=== PATIENT | male | born 1940 | race Caucasian/White ===

== ENCOUNTER 2016-11-19 08:17 | Day surgery (SDC) | payer OTHER ==
[~2016-11-19] VITALS: Ht 180.3 cm; Wt 113.2 kg
[~2016-11-19 08:17] MED LIST: ADALAT CC 60 MG60 MG PO; ASPIR 8181 M1 PO; FLOMAX0.4 MG PO; HYDROCHLOROTH12.5 M3 PO; LIPITOR40 MG PO; LISINOPRIL40 MG; LOPID600 MG PO; METOPROLOL SUC100 MG PO; METOPROLOL SUC200 MG PO; OMEPRAZOLE20 MG PO; ZESTRIL40 MG PO
[2016-11-19 15:15] VITALS: BP 178/77
[2016-11-19 19:28] VITALS: BP 136/71
[2016-11-20 00:30] VITALS: BP 119/59
[2016-11-20 06:04] VITALS: BP 126/67
[2016-11-20 07:49] LABS: EOSINOPHIL COUNT 0.1 K/uL (0-0.3); HEMATOCRIT 37.6 % (38.0-50.0); IMMATURE GRANULOCYTE (%) 0.1 % (0.0-0.7); INSTRUMENT ABS NEUTROPHIL CT 5.1 K/uL; LYMPHOCYTE COUNT 1.2 K/uL (1.0-2.8); MCH 31.3 PG (29.0-34.0); MCHC 33.8 G/DL (30.0-36.0); MCV 92.6 FL (86-99); MONOCYTE (%) 7.8 % (3-12); MONOCYTE COUNT 0.6 K/uL (0-0.8); NEUTROPHIL (%) 73.1 % (45-76); NEUTROPHIL COUNT 5.1 K/uL (1.8-6.4); PLATELET COUNT 169 K/uL (156-360); RBC DIS.WIDTH-CV 12.1 % (11.8-14.6); RBC DIS.WIDTH-SD 41.3 % (39-53); RED BLOOD COUNT 4.06 M/uL (4.00-5.50)
[2016-11-20 08:12] LABS: ANION GAP 12 MEQ/L (2-14); CHLORIDE 101 MEQ/L (99-109); GFR ESTIMATE (CALCULATED) > 59 mL/min/; GLUCOSE 104 mg/dL (70-99); POTASSIUM 3.2 MEQ/L (3.7-5.4); SAMPLE HEMOLYSIS CHECK 0; SAMPLE ICTERIC CHECK 0; SAMPLE LIPEMIA CHECK 0; SODIUM 140 MEQ/L (136-147); UREA NITROGEN (BUN) 17 mg/dL (9-23)
[2016-11-20 09:14] VITALS: BP 153/68
[2016-11-20] MEDS ORDERED: NITROSTAT0.4 MG SL (10:37)
[2016-11-20] MEDS ORDERED: PANTOPRAZOLE SO40 MG PO (10:39)
[2016-11-20] MEDS ORDERED: ASPIR-LOW81 MG PO (10:39)
[2016-11-20] MEDS ORDERED: BRILINTA90 MG PO (10:52)
[2016-11-20 12:27] VITALS: BP 141/65
[2016-11-20 15:31] VITALS: BP 157/75
== END 2016-11-20 20:20 | disposition home or self-care (01) ==
LOC: CATH 08:17 → 2SOUTH 12:30 → 4EAST 12:30
PROVIDERS: Internal Medicine Cardiovascular Disease
DX: I25.119 Atherosclerotic heart disease of native coronary artery with unspecified angina pectoris (principal); I10 Essential (primary) hypertension; E78.5 Hyperlipidemia, unspecified; I45.10 Unspecified right bundle-branch block; E66.9 Obesity, unspecified; Z68.36 Body mass index [BMI] 36.0-36.9, adult; Z79.82 Long term (current) use of aspirin; Z79.899 Other long term (current) drug therapy
CPT/HCPCS: 93458; C9600; 80048; 84132 91; 85025; 93005; C1725; C1760; C1769; C1874; C1887; C1894; G0378; J0583; J0690; J1644; J2250; J3010; J3480; J7030; J7050

== ENCOUNTER 2016-11-25 09:31 | Observation (INO) | payer OTHER ==
[~2016-11-25] VITALS: Ht 180.3 cm; Wt 113.6 kg
[~2016-11-25 09:31] MED LIST changes: +ASPIR-LOW81 MG PO; +BRILINTA90 MG PO; +NITROSTAT0.4 MG SL; +PANTOPRAZOLE SO40 MG PO
[2016-11-25 09:54] LABS: POINT-OF-CARE METER ID UU13113702
[2016-11-25 11:02] LABS: MCH 31.6 PG (29.0-34.0); MCHC 34.2 G/DL (30.0-36.0); MCV 92.2 FL (86-99); MEAN PLAT.VOLUME 12.1 uM^3 (9.0-12.4); PLATELET COUNT 171 K/uL (156-360); RBC DIS.WIDTH-CV 11.9 % (11.8-14.6); RBC DIS.WIDTH-SD 40.9 % (39-53); RED BLOOD COUNT 4.12 M/uL (4.00-5.50); WHITE BLOOD COUNT 8.3 K/uL (4.1-10.2)
[2016-11-25 11:12] LABS: CHLORIDE 107 mEq/L (99-109); POTASSIUM 3.6 mEq/L (3.7-5.4); SODIUM 141 mEq/L (136-147)
[2016-11-25 11:14] LABS: GLUCOSE 188 mg/dL (70-99)
[2016-11-25 11:15] LABS: ANION GAP 13 MEQ/L (2-14)
[2016-11-25 11:18] LABS: GFR ESTIMATE (CALCULATED) > 59 mL/min/; UREA NITROGEN (BUN) 17 mg/dL (9-23)
[2016-11-25 11:25] LABS: TROP-I INTERPRETATION NEGATIVE; TROPONIN-I < 0.01 ng/mL (0.0-0.30)
[2016-11-25] MEDS ORDERED: LO-DOSE ASPIRIN81 M2 PO (11:52)
[2016-11-25] MEDS ORDERED: METOPROLOL TART50 MG PO (11:53)
[2016-11-25] MEDS ORDERED: NIFEDIPINE ER60 MG PO (11:56)
[2016-11-25] MEDS ORDERED: PANTOPRAZOLE SO40 MG PO (11:56)
[2016-11-25 18:05] LABS: ADD MIUA? NO; BILIRUBIN NEGATIVE; BLOOD NEGATIVE; COLOR YELLOW ((YELLOW)); GLUCOSE (STRIP) NEGATIVE; KETONES 5; LEUKOCYTES NEGATIVE; NITRITE NEGATIVE; PROTEIN (STRIP) 30; SPECIFIC GRAVITY 1.018 (1.000-1.030); UCUL ADDED? NO; UROBILINOGEN 0.2 MG/DL (0.2-1.0)
[2016-11-25 18:45] LABS: TROP-I INTERPRETATION NEGATIVE; TROPONIN-I < 0.01 ng/mL (0.0-0.30)
[2016-11-25 20:50] VITALS: BP 160/82
[2016-11-25 21:09] VITALS: BP 197/86
[2016-11-25 23:52] VITALS: BP 152/71
[2016-11-26] VITALS (9 sets, daily range): BP systolic 117–159; BP diastolic 64–80
[2016-11-26 07:34] LABS: HDL CHOLESTEROL 24 MG/DL (Desirable>=40); LDL CHOLESTEROL 69 mg/dL (Desirable<100); NON-HDL CHOLESTEROL 93 mg/dL (Desirable<160); TOTAL CHOLESTEROL 117 mg/dL (Desirable<200); TRIGLYCERIDES 119 MG/DL (Normal: <150)
[2016-11-26 07:39] LABS: TROP-I INTERPRETATION NEGATIVE; TROPONIN-I 0.01 ng/mL (0.0-0.30)
[2016-11-26 09:14] LABS: Estimated Average Glucose 131 mg/dL (70-123); HEMOGLOBIN A1c (GLYCOHEMOGLOB) 6.2 % HGB (Below 5.7)
[2016-11-26 10:00] LABS: TROP-I INTERPRETATION NEGATIVE; TROPONIN-I 0.01 ng/mL (0.0-0.30)
[2016-11-26] MEDS ORDERED: METOPROLOL TART50 MG PO (16:58)
[2016-11-27 03:25] VITALS: BP 136/74
[2016-11-27 07:26] VITALS: BP 152/72
[2016-11-27 11:05] VITALS: BP 135/54
== END 2016-11-27 13:51 | disposition home or self-care (01) ==
LOC: EME 09:31 → 5SOUTH 12:45 → EDOF 12:45 → 5SOUTH 12:45
PROVIDERS: Emergency Medicine; Hospitalist
DX: R42 Dizziness and giddiness (principal); I10 Essential (primary) hypertension; E78.5 Hyperlipidemia, unspecified; I25.10 Atherosclerotic heart disease of native coronary artery without angina pectoris; Z95.5 Presence of coronary angioplasty implant and graft; N40.0 Benign prostatic hyperplasia without lower urinary tract symptoms; K21.9 Gastro-esophageal reflux disease without esophagitis; E66.9 Obesity, unspecified; Z68.34 Body mass index [BMI] 34.0-34.9, adult; R73.03 Prediabetes
CPT/HCPCS: 70450; 70551; 71020; 80048; 80061; 81003; 82948; 83036; 84484; 85025; 85027; 93005; 94799; 99281; 99284; G0378; J1650

== ENCOUNTER 2017-02-07 08:05 | Observation (INO) | payer OTHER ==
[~2017-02-07] VITALS: Ht 180.3 cm; Wt 110.0 kg
[~2017-02-07 08:05] MED LIST changes: +LO-DOSE ASPIRIN81 M2 PO; +METOPROLOL TART50 MG PO; +NIFEDIPINE ER60 MG PO
[2017-02-07 09:34] LABS: HEMATOCRIT 34.6 % (38.0-50.0); MCH 31.4 PG (29.0-34.0); MCHC 33.8 G/DL (30.0-36.0); MCV 92.8 FL (86-99); MEAN PLAT.VOLUME 11.6 uM^3 (9.0-12.4); PLATELET COUNT 177 K/uL (156-360); RBC DIS.WIDTH-CV 12.7 % (11.8-14.6); RBC DIS.WIDTH-SD 43.2 % (39-53); RED BLOOD COUNT 3.73 M/uL (4.00-5.50); WHITE BLOOD COUNT 9.9 K/uL (4.1-10.2)
[2017-02-07 09:45] LABS: CHLORIDE 107 mEq/L (99-109); POTASSIUM 3.5 mEq/L (3.7-5.4); SODIUM 141 mEq/L (136-147)
[2017-02-07 09:47] LABS: GLUCOSE 165 mg/dL (70-99)
[2017-02-07 09:48] LABS: ANION GAP 10 MEQ/L (2-14)
[2017-02-07 09:49] LABS: TOTAL BILIRUBIN 0.5 mg/dL (0.0-1.0)
[2017-02-07 09:50] LABS: ALKALINE PHOSPHATASE 92 IU/L (3-129)
[2017-02-07 09:51] LABS: GFR ESTIMATE (CALCULATED) > 59 mL/min/
[2017-02-07 09:52] LABS: UREA NITROGEN (BUN) 17 mg/dL (9-23)
[2017-02-07 09:54] LABS: CREATINE KINASE 79 IU/L (1-294); TOTAL CK 79 IU/L (1-294)
[2017-02-07 10:04] LABS: TROP-I INTERPRETATION NEGATIVE; TROPONIN-I < 0.01 ng/mL (0.0-0.30)
[2017-02-07 10:05] LABS: CK-MB 0.7 ng/mL (0.0-4.9)
[2017-02-07 12:11] LABS: POINT-OF-CARE METER ID UU14100415
[2017-02-07] MEDS ORDERED: PLAVIX75 MG PO (12:24)
[2017-02-07] MEDS ORDERED: GUMMI BEAR MUL1 EACH PO (12:26)
[2017-02-07] MEDS ORDERED: LOPRESSOR50 MG PO (13:24)
[2017-02-07 14:58] VITALS: BP 169/79
[2017-02-07 19:56] VITALS: BP 172/79
[2017-02-07 23:48] VITALS: BP 129/71
[2017-02-08 04:18] VITALS: BP 142/71
[2017-02-08 06:19] LABS: HEMATOCRIT 33.7 % (38.0-50.0); MCH 32.4 PG (29.0-34.0); MCHC 33.8 G/DL (30.0-36.0); MCV 95.7 FL (86-99); MEAN PLAT.VOLUME 11.8 uM^3 (9.0-12.4); PLATELET COUNT 177 K/uL (156-360); RBC DIS.WIDTH-CV 13.2 % (11.8-14.6); RBC DIS.WIDTH-SD 46.4 % (39-53); RED BLOOD COUNT 3.52 M/uL (4.00-5.50); WHITE BLOOD COUNT 5.8 K/uL (4.1-10.2)
[2017-02-08 07:02] LABS: ANION GAP 8 MEQ/L (2-14); CHLORIDE 106 MEQ/L (99-109); GFR ESTIMATE (CALCULATED) > 59 mL/min/; SAMPLE HEMOLYSIS CHECK 0; SAMPLE ICTERIC CHECK 0; SAMPLE LIPEMIA CHECK 0; SODIUM 144 MEQ/L (136-147); UREA NITROGEN (BUN) 16 mg/dL (9-23)
[2017-02-08 07:10] LABS: GLUCOSE 97 mg/dL (70-99)
[2017-02-08 07:57] VITALS: BP 139/71
[2017-02-08 12:10] VITALS: BP 145/67
[2017-02-08] MEDS ORDERED: ANTIVERT25 MG PO (14:01)
== END 2017-02-08 16:05 | disposition home or self-care (01) ==
LOC: EME → EDBD 08:05 → EME 08:05 → 5SOUTH 12:17 → EDOF 12:17 → ENRESERV 12:23 → 5SOUTH 14:57
PROVIDERS: Emergency Medicine; Family Medicine
DX: R42 Dizziness and giddiness (principal); I25.10 Atherosclerotic heart disease of native coronary artery without angina pectoris; Z95.5 Presence of coronary angioplasty implant and graft; I10 Essential (primary) hypertension; E11.9 Type 2 diabetes mellitus without complications; E78.5 Hyperlipidemia, unspecified; R07.9 Chest pain, unspecified; Z79.82 Long term (current) use of aspirin; Z82.49 Family history of ischemic heart disease and other diseases of the circulatory system; Z79.02 Long term (current) use of antithrombotics/antiplatelets
CPT/HCPCS: 70450; 80048; 80053; 82550; 82553; 82948; 84484; 85027; 93005; 99281; 99285; G0378; J1650; J2405; J3360

== ENCOUNTER 2017-05-07 23:50 | Inpatient (IN) | payer OTHER ==
[~2017-05-07] VITALS: Ht 177.8 cm; Wt 107.2 kg
[~2017-05-07 23:50] MED LIST changes: +ANTIVERT25 MG PO; +GUMMI BEAR MUL1 EACH PO; +LOPRESSOR50 MG PO; +PLAVIX75 MG PO
[2017-05-08] VITALS (7 sets, daily range): BP systolic 119–139; BP diastolic 60–76
[2017-05-08 00:44] LABS: HEMATOCRIT 35.5 % (38.0-50.0); MCH 31.4 PG (29.0-34.0); MCHC 33.2 G/DL (30.0-36.0); MCV 94.4 FL (86-99); MEAN PLAT.VOLUME 11.2 uM^3 (9.0-12.4); PLATELET COUNT 190 K/uL (156-360); RBC DIS.WIDTH-SD 45.1 % (39-53); RED BLOOD COUNT 3.76 M/uL (4.00-5.50); WHITE BLOOD COUNT 11.9 K/uL (4.1-10.2)
[2017-05-08 00:48] LABS: CARBON DIOXIDE (BICARBONATE) 31.3 MEQ/L (20-31)
[2017-05-08 00:59] LABS: CHLORIDE 105 mEq/L (99-109); POTASSIUM 3.4 mEq/L (3.7-5.4); SODIUM 141 mEq/L (136-147)
[2017-05-08 01:00] LABS: GLUCOSE 128 mg/dL (70-99)
[2017-05-08 01:02] LABS: ANION GAP 11 MEQ/L (2-14)
[2017-05-08 01:04] LABS: GFR ESTIMATE (CALCULATED) > 59 mL/min/
[2017-05-08 01:05] LABS: UREA NITROGEN (BUN) 16 mg/dL (9-23)
[2017-05-08 01:12] LABS: TROP-I INTERPRETATION NEGATIVE; TROPONIN-I < 0.01 ng/mL (0.0-0.30)
[2017-05-08] MEDS ORDERED: LOPRESSOR50 MG PO (13:46)
[2017-05-08] MEDS ORDERED: MENTHOL (13:53)
[2017-05-09 06:56] LABS: HEMATOCRIT 34.4 % (38.0-50.0); MCH 31.9 PG (29.0-34.0); MCHC 32.6 G/DL (30.0-36.0); RBC DIS.WIDTH-CV 13.4 % (11.8-14.6); RBC DIS.WIDTH-SD 48.1 % (39-53); RED BLOOD COUNT 3.51 M/uL (4.00-5.50)
[2017-05-09 07:28] LABS: MEAN PLAT.VOLUME 11.5 uM^3 (9.0-12.4); PLAT.SUFFICIENCY ADEQUATE; PLATELET COUNT 180 K/uL (156-360)
[2017-05-09 07:34] LABS: ALKALINE PHOSPHATASE 70 IU/L (3-129); ANION GAP 10 MEQ/L (2-14); CHLORIDE 108 MEQ/L (99-109); GFR ESTIMATE (CALCULATED) > 59 mL/min/; GLUCOSE 104 mg/dL (70-99); POTASSIUM 4.1 MEQ/L (3.7-5.4); SAMPLE HEMOLYSIS CHECK 0; SAMPLE ICTERIC CHECK 0; SAMPLE LIPEMIA CHECK 0; SODIUM 143 MEQ/L (136-147); TOTAL BILIRUBIN 0.5 MG/DL (0.0-1.0); UREA NITROGEN (BUN) 17 mg/dL (9-23)
[2017-05-09 07:52] VITALS: BP 129/61
[2017-05-09 10:20] LABS: INTERNAL CONTROL VALID? YES
[2017-05-09 15:49] VITALS: BP 140/66
[2017-05-09 23:42] VITALS: BP 149/62
[2017-05-10 04:14] LABS: C DIFF TOXIN NEGATIVE (NEGATIVE); PROBE CHECK PASS; SPECIMEN PROCESSING CONTROL PASS
[2017-05-10 05:34] LABS: HEMATOCRIT 33.8 % (38.0-50.0); MCH 30.9 PG (29.0-34.0); MCHC 32.2 G/DL (30.0-36.0); MCV 95.8 FL (86-99); MEAN PLAT.VOLUME 11.4 uM^3 (9.0-12.4); PLATELET COUNT 202 K/uL (156-360); RBC DIS.WIDTH-CV 13.1 % (11.8-14.6); RBC DIS.WIDTH-SD 46.2 % (39-53); RED BLOOD COUNT 3.53 M/uL (4.00-5.50); WHITE BLOOD COUNT 10.9 K/uL (4.1-10.2)
[2017-05-10 06:00] LABS: ANION GAP 11 MEQ/L (2-14); CHLORIDE 105 MEQ/L (99-109); GFR ESTIMATE (CALCULATED) > 59 mL/min/; GLUCOSE 114 mg/dL (70-99); POTASSIUM 4.1 MEQ/L (3.7-5.4); SAMPLE HEMOLYSIS CHECK 0; SAMPLE ICTERIC CHECK 0; SAMPLE LIPEMIA CHECK 0; SODIUM 142 MEQ/L (136-147); UREA NITROGEN (BUN) 14 mg/dL (9-23)
[2017-05-10 07:11] VITALS: BP 157/70
[2017-05-10 15:11] VITALS: BP 137/65
[2017-05-10 23:26] VITALS: BP 133/62
[2017-05-11 06:55] LABS: EOSINOPHIL (%) 1.3 % (0-5); EOSINOPHIL COUNT 0.1 K/uL (0-0.3); HEMATOCRIT 34.4 % (38.0-50.0); IMMATURE GRANULOCYTE (%) 0.9 % (0.0-0.7); IMMATURE GRANULOCYTE COUNT 0.1 K/uL; LYMPHOCYTE COUNT 1.7 K/uL (1.0-2.8); MCH 31.7 PG (29.0-34.0); MCHC 33.1 G/DL (30.0-36.0); MCV 95.6 FL (86-99); MEAN PLAT.VOLUME 11.2 uM^3 (9.0-12.4); MONOCYTE (%) 7.9 % (3-12); MONOCYTE COUNT 0.7 K/uL (0-0.8); NEUTROPHIL (%) 70.1 % (45-76); PLATELET COUNT 231 K/uL (156-360); RBC DIS.WIDTH-SD 45.7 % (39-53); WHITE BLOOD COUNT 8.5 K/uL (4.1-10.2)
[2017-05-11 07:08] VITALS: BP 142/69
[2017-05-11 07:22] LABS: ANION GAP 10 MEQ/L (2-14); CHLORIDE 104 MEQ/L (99-109); GFR ESTIMATE (CALCULATED) > 59 mL/min/; GLUCOSE 100 mg/dL (70-99); POTASSIUM 3.6 MEQ/L (3.7-5.4); SAMPLE HEMOLYSIS CHECK 0; SAMPLE ICTERIC CHECK 0; SAMPLE LIPEMIA CHECK 0; SODIUM 144 MEQ/L (136-147); UREA NITROGEN (BUN) 14 mg/dL (9-23)
[2017-05-11] MEDS ORDERED: GUAIFENESI100 MG/5 M PO (11:30)
[2017-05-11] MEDS ORDERED: VENTOLIN HFA18 GM IH (11:30)
[2017-05-11] MEDS ORDERED: DOXYCYCLINE HY100 MG PO (11:30)
== END 2017-05-11 15:25 | disposition home or self-care (01) | DRG 194 ==
LOC: EME 23:50 → 5SOUTH 05-08 03:54 → EDOF 05-08 03:54 → ENRESERV 05-08 03:55 → 4EAST 05-08 06:07 → ENRESERV 05-08 12:01 → 5SOUTH 05-08 15:38 → ENPENDDIS 05-11 → 5SOUTH 05-11 15:25
PROVIDERS: Emergency Medicine; Hospitalist; Internal Medicine
DX: J18.9 Pneumonia, unspecified organism (principal); R09.02 Hypoxemia; E87.6 Hypokalemia; R91.8 Other nonspecific abnormal finding of lung field; B30.9 Viral conjunctivitis, unspecified; R59.0 Localized enlarged lymph nodes; J98.11 Atelectasis; R19.7 Diarrhea, unspecified; I25.10 Atherosclerotic heart disease of native coronary artery without angina pectoris; I10 Essential (primary) hypertension; E78.5 Hyperlipidemia, unspecified; R73.03 Prediabetes; I51.7 Cardiomegaly; K21.9 Gastro-esophageal reflux disease without esophagitis; E66.9 Obesity, unspecified; Z68.35 Body mass index [BMI] 35.0-35.9, adult; Z95.5 Presence of coronary angioplasty implant and graft; Z79.82 Long term (current) use of aspirin; Z79.02 Long term (current) use of antithrombotics/antiplatelets
CPT/HCPCS: 71010; 71020; 71275; 80048; 80053; 82803; 83605; 83880; 84484; 85025; 85027; 85379; 87040; 87449; 87493; 93005; 94640; 94640 76; 94760; 94799; 99202; 99281; 99285; J0456; J0696; J1644; J1940; J2543; J2920; J3370; J7030; J7050

== ENCOUNTER 2017-08-24 12:07 | Observation (INO) | payer OTHER ==
[~2017-08-24] VITALS: Ht 180.3 cm; Wt 111.3 kg
[~2017-08-24 12:07] MED LIST changes: +DOXYCYCLINE HY100 MG PO; +GUAIFENESI100 MG/5 M PO; +MENTHOL; +VENTOLIN HFA18 GM IH
[2017-08-24 13:14] LABS: HEMATOCRIT 38.8 % (38.0-50.0); HEMOGLOBIN 13.2 G/DL (12.5-16.6); MCV 94.2 FL (86-99); RBC DIS.WIDTH-CV 12.4 % (11.8-14.6); RED BLOOD COUNT 4.12 M/uL (4.00-5.50); WHITE BLOOD COUNT 5.5 K/uL (4.1-10.2)
[2017-08-24 13:21] LABS: INTER. NORMALIZED RATIO 1.2
[2017-08-24 13:24] LABS: PTT 28.1 SEC (25-37)
[2017-08-24 13:29] LABS: ALBUMIN 4.1 g/dL (3.2-4.8); CHLORIDE 108 mEq/L (99-109); POTASSIUM 4.1 mEq/L (3.7-5.4); SODIUM 142 mEq/L (136-147)
[2017-08-24 13:31] LABS: GLUCOSE 95 mg/dL (70-99)
[2017-08-24 13:32] LABS: TOTAL PROTEIN 7.3 g/dL (6.4-8.3)
[2017-08-24 13:33] LABS: TOTAL BILIRUBIN 0.5 mg/dL (0.0-1.0)
[2017-08-24 13:35] LABS: ALKALINE PHOSPHATASE 73 IU/L (3-129); CREATININE 1.1 mg/dL (0.6-1.3); GFR ESTIMATE (CALCULATED) > 59 mL/min/ (58.99-99999)
[2017-08-24 13:36] LABS: UREA NITROGEN (BUN) 19 mg/dL (9-23)
[2017-08-24 13:37] LABS: AST (GOT) 20 IU/L (2-34)
[2017-08-24 13:38] LABS: ALT (GPT) 20 IU/L (3-49)
[2017-08-24 13:41] LABS: TROP-I INTERPRETATION NEGATIVE; TROPONIN-I 0.01 ng/mL (0.0-0.30)
[2017-08-24 13:54] LABS: PLAT.SUFFICIENCY ADEQUATE; PLATELET COUNT 174 K/uL (156-360)
[2017-08-24 18:13] VITALS: BP 175/83
[2017-08-24 20:33] LABS: TROP-I INTERPRETATION NEGATIVE; TROPONIN-I < 0.01 ng/mL (0.0-0.30)
[2017-08-24 23:44] VITALS: BP 167/75
[2017-08-25 03:08] LABS: TROP-I INTERPRETATION NEGATIVE; TROPONIN-I < 0.01 ng/mL (0.0-0.30)
[2017-08-25 03:49] VITALS: BP 149/70
[2017-08-25 07:47] VITALS: BP 149/77
== END 2017-08-25 11:37 | disposition home or self-care (01) ==
LOC: EME 12:07 → EDOF 16:11 → 5WEST 16:11 → EDOF 16:11 → ENRESERV 16:13 → 5WEST 18:04
PROVIDERS: Internal Medicine
DX: R07.9 Chest pain, unspecified (principal); I25.10 Atherosclerotic heart disease of native coronary artery without angina pectoris; Z95.5 Presence of coronary angioplasty implant and graft; E11.9 Type 2 diabetes mellitus without complications; E78.5 Hyperlipidemia, unspecified; I11.9 Hypertensive heart disease without heart failure; I45.19 Other right bundle-branch block; K21.9 Gastro-esophageal reflux disease without esophagitis; Z79.82 Long term (current) use of aspirin; Z79.02 Long term (current) use of antithrombotics/antiplatelets; E66.9 Obesity, unspecified; Z68.34 Body mass index [BMI] 34.0-34.9, adult
CPT/HCPCS: 71046; 80053; 84484; 85027; 85610; 85730; 93005; 99281; 99285; G0378

== ENCOUNTER 2017-11-07 08:32 | Day surgery (SDC) | payer OTHER ==
[~2017-11-07] VITALS: Ht 177.8 cm; Wt 109.1 kg
[2017-11-07 15:48] VITALS: BP 134/63
[2017-11-07 20:02] VITALS: BP 155/72
[2017-11-08 00:32] VITALS: BP 138/65
[2017-11-08 04:39] VITALS: BP 128/63
[2017-11-08 05:40] LABS: BASOPHIL (%) 0.6 % (0-1); EOSINOPHIL (%) 2.4 % (0-5); EOSINOPHIL COUNT 0.2 K/uL (0-0.3); HEMATOCRIT 37.9 % (38.0-50.0); HEMOGLOBIN 12.8 G/DL (12.5-16.6); IMMATURE GRANULOCYTE (%) 0.2 % (0.0-0.7); LYMPHOCYTE (%) 23.7 % (15-42); LYMPHOCYTE COUNT 1.5 K/uL (1.0-2.8); MCH 31.8 PG (29.0-34.0); MCHC 33.8 G/DL (30.0-36.0); MONOCYTE (%) 8.3 % (3-12); MONOCYTE COUNT 0.5 K/uL (0-0.8); NEUTROPHIL (%) 64.8 % (45-76); NEUTROPHIL COUNT 4.1 K/uL (1.8-6.4); PLATELET COUNT 169 K/uL (156-360); RBC DIS.WIDTH-CV 12.5 % (11.8-14.6); RBC DIS.WIDTH-SD 43.3 % (39-53); RED BLOOD COUNT 4.03 M/uL (4.00-5.50); WHITE BLOOD COUNT 6.3 K/uL (4.1-10.2)
[2017-11-08 05:58] LABS: CHLORIDE 106 MEQ/L (99-109); CREATININE 0.8 MG/DL (0.6-1.3); GFR ESTIMATE (CALCULATED) > 59 mL/min/ (58.99-99999); GLUCOSE 106 mg/dL (70-99); POTASSIUM 3.3 MEQ/L (3.7-5.4); SODIUM 140 MEQ/L (136-147); UREA NITROGEN (BUN) 17 mg/dL (9-23)
[2017-11-08 09:00] VITALS: BP 145/66
[2017-11-08 12:00] VITALS: BP 175/83
== END 2017-11-08 12:54 | disposition home or self-care (01) ==
LOC: CATH 08:32 → ENRESERV 11:04 → 2SOUTH 11:30 → 4EAST 11:30 → CATH 11:30 → 2SOUTH 11:30 → ENRESERV 11:45 → 4EAST 14:06 → 2SOUTH 14:06 → 4EAST 11-08 12:54
PROVIDERS: Internal Medicine Cardiovascular Disease
DX: I25.118 Atherosclerotic heart disease of native coronary artery with other forms of angina pectoris (principal); I45.10 Unspecified right bundle-branch block; I10 Essential (primary) hypertension; Z95.5 Presence of coronary angioplasty implant and graft; E66.9 Obesity, unspecified; Z68.35 Body mass index [BMI] 35.0-35.9, adult; E78.5 Hyperlipidemia, unspecified; N40.0 Benign prostatic hyperplasia without lower urinary tract symptoms; K21.9 Gastro-esophageal reflux disease without esophagitis; R73.03 Prediabetes; Z79.82 Long term (current) use of aspirin
CPT/HCPCS: 36415; 80048; 85025; 85347; 85610; 93005; C1725; C1760; C1769; C1874; C1887; C1894; G0378; J0583; J0690; J1644; J2250; J3010